=== PATIENT | male | born 2000 | race Caucasian/White ===

== ENCOUNTER 2018-05-30 00:33 | Emergency (ER) | payer MEDICAID ==
[~2018-05-30] VITALS: Ht 157.5 cm; Wt 69.9 kg
[2018-05-30 00:37] VITALS: Ht 157.5 cm; Wt 69.9 kg
[2018-05-30 02:27] LABS: microscopic required? NO
[2018-05-30 02:42] LABS: UA SPECIFIC GRAVITY 1.025 (1.005-1.035); urine erythrocyte NEGATIVE (NEGATIVE)
[2018-05-30 02:47] LABS: BASOPHIL % 0.5 % (0-2); PLATELET COUNT 234 x10^3mcL (130-400)
[2018-05-30 03:07] LABS: GFR1 > 60 mL/min
[2018-05-30 03:08] LABS: CALCIUM 9.5 mg/dL (8.5-10.1); CARBON DIOXIDE 25.6 mmol/L (21-32); CHLORIDE SERUM 100 mmol/L (98-107); CREATININE SERUM 1.1 mg/dL (0.7-1.3); GLUCOSE SERUM 108 mg/dL (74-106); POTASSIUM SERUM 3.5 mmol/L (3.5-5.1); SODIUM SERUM 138 mmol/L (136-145)
[2018-05-30 03:12] LABS: ALBUMIN 4.6 g/dL (3.4-5.0)
[2018-05-30 03:13] LABS: ALKALINE PHOSPHATASE 82 U/L (46-116); ALT/SGPT 27 U/L (16-63); AST/SGOT 21 U/L (15-37); BILIRUBIN TOTAL 1.31 mg/dL (0.20-1.00); LIPASE 204 IU/L (73-393)
[2018-05-30 03:14] LABS: TOTAL PROTEIN, SERUM 8.4 g/dL (6.4-8.2)
[2018-05-30 08:54] VITALS: BP 130/69
== END 2018-05-30 08:54 | disposition home or self-care (01) ==
LOC: ED 00:33
PROVIDERS: Emergency Medicine
DX: R10.11 Right upper quadrant pain (principal); Z98.890 Other specified postprocedural states
CPT/HCPCS: 36415; Q0092

== ENCOUNTER 2018-10-18 17:51 | Emergency (ER) | payer SELFPAY ==
[~2018-10-18] VITALS: Ht 157.5 cm; Wt 66.7 kg
[2018-10-18 17:56] VITALS: Ht 157.5 cm; Wt 66.7 kg
[2018-10-18 19:40] LABS: BASOPHIL % 0.4 % (0-2); PLATELET COUNT 257 x10^3mcL (130-400); RED CELL DISTRIBUTION WIDTH 13.2 % (11.5-14.5)
[2018-10-18 19:49] LABS: CALCIUM 9.4 mg/dL (8.5-10.1); CARBON DIOXIDE 21.3 mmol/L (21-32); CHLORIDE SERUM 105 mmol/L (98-107); GFR1 > 60 mL/min; GLUCOSE SERUM 104 mg/dL (74-106); POTASSIUM SERUM 3.6 mmol/L (3.5-5.1); SODIUM SERUM 140 mmol/L (136-145)
[2018-10-18 19:56] LABS: ALBUMIN 4.3 g/dL (3.4-5.0); ALKALINE PHOSPHATASE 79 U/L (46-116); ALT/SGPT 31 U/L (16-63); AST/SGOT 16 U/L (15-37); BILIRUBIN TOTAL 0.79 mg/dL (0.20-1.00); CHOLESTEROL 165 mg/dL (<200); LIPASE 132 IU/L (73-393); TOTAL PROTEIN, SERUM 8.2 g/dL (6.4-8.2); TRIGLYCERIDES 131 mg/dL (<150)
[2018-10-18 20:00] LABS: CHOLESTEROL/HDL RATIO 2.4; HDL CHOLESTEROL 70 mg/dL (40-60)
[2018-10-18 20:25] LABS: T3 TOTAL 1.05 ng/mL
[2018-10-18 20:38] LABS: FREE T4 0.99 ng/dL (0.76-1.46); FREE THYROXINE INDEX 2.6 ug/dL (1.4-4.5); T4(THYROXINE) 7.2 ug/dL (4.7-13.3)
[2018-10-18 20:44] LABS: AMPHETAMINE QUAL UR POSITIVE (See below)
[2018-10-18 20:46] VITALS: BP 124/76
== END 2018-10-18 20:46 | disposition home or self-care (01) ==
LOC: ED 17:51
PROVIDERS: Specialist
DX: R53.1 Weakness (principal); F10.10 Alcohol abuse, uncomplicated
CPT/HCPCS: 83880; 84439; G0480; J7030; Q0092